=== PATIENT | male | born 1990 | race Asian ===

== ENCOUNTER 2021-08-30 16:29 | Emergency (ER) | payer OTHER ==
[~2021-08-30] VITALS: Ht 182.9 cm; Wt 90.7 kg
[2021-08-30 16:55] VITALS: BP 135/74
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
--- NOTE | 2021-08-30 17:13 | NUR ---
XRAY AT BEDSIDE
[2021-08-30] MEDS ORDERED: NAPR-54 PO (17:58)
[2021-08-30 18:18] VITALS: BP 135/74
--- NOTE | 2021-08-30 18:19 | NUR ---
Patient discharged with v/s stable. Written and verbal after care instructions given. Patient alert, oriented and verbalized understanding of instructions. Ambulatory with steady gait. All questions addressed prior to discharge. ID band removed. Patient advised to follow up with PMD. Rx of Naproxen given. Opportunity to ask questions provided and answered. [place]ork Note handed to patient.
== END 2021-08-30 18:19 | disposition home or self-care (01) ==
LOC: MED 16:29
DX: M79.672 Pain in left foot (principal); Z79.899 Other long term (current) drug therapy; W22.8XXA Striking against or struck by other objects, initial encounter; Y93.89 Activity, other specified; Y92.89 Other specified places as the place of occurrence of the external cause; Y99.8 Other external cause status
CPT/HCPCS: 29515; 73610; 73630; 99284